=== PATIENT | male | born 1985 | race Hispanic/Latino ===

== ENCOUNTER 2021-06-18 23:31 | Inpatient (IN) | payer SELFPAY ==
[~2021-06-18] VITALS: Ht 172.7 cm; Wt 81.6 kg
[2021-06-19] MEDS ORDERED: ACETAMINOPHEN 325 MG TAB PO ONE
[2021-06-19] MEDS ORDERED: DEXAMETHASONE SOD PHOS 10 MG/1 ML VIAL IV ONE
[2021-06-19 00:03] LABS: BASOPHILS % 0.1 % (0.0-1.0); HEMATOCRIT 44.1 % (38.2-49.6); HEMOGLOBIN 14.6 g/dL (14.0-18.0); LYMPHOCYTES % 12.7 % (18.0-39.1); MEAN CORPUSCULAR HEMOGLOBIN 27.5 pg (28-32); MEAN CORPUSCULAR HGB CONC 33.1 g/dL (31-35); MEAN CORPUSCULAR VOLUME 83.2 fL (81-99); MONOCYTES # (AUTO) 0.4 (0.2-0.8); MONOCYTES % 4.8 % (4.4-11.3); NEUTROPHILS # (AUTO) 6.3 (2.1-6.9); NEUTROPHILS % 81.9 % (38.7-80.0); PLATELET COUNT 136 x10e3/uL (140-360); RED CELL DISTRIBUTION WIDTH 14.4 % (11.7-14.4)
[2021-06-19] MEDS ORDERED: ACETAMINOPHEN 325 MG TAB ONE (00:04)
[2021-06-19] MEDS ORDERED: DEXAMETHASONE SOD PHOS 10 MG/1 ML VIAL ONE (00:05)
[2021-06-19 00:18] LABS: ALBUMIN 3.4 g/dL (3.5-5.0); ANION GAP 12.6 mmol/L (8-16); CALCIUM 8.2 mg/dL (8.4-10.2); CREATININE, SERUM 0.91 mg/dL (0.72-1.25); POTASSIUM 3.6 mmol/L (3.5-5.1)
[2021-06-19 00:24] LABS: CREATINE KINASE MB 0.3 ng/mL (0-5.0)
[2021-06-19 07:23] LABS: CREATINE KINASE MB 0.4 ng/mL (0-5.0)
[2021-06-19] MEDS ORDERED: ACETAMINOPHEN 325 MG TAB PO PRN (11:00)
[2021-06-19] MEDS ORDERED: HYDRALAZINE HCL 20 MG/ML VIAL IV PRN (11:00)
[2021-06-19] MEDS ORDERED: CYPROHEPTADINE H4 MG (11:28)
[2021-06-19] MEDS ORDERED: PREDNISONE20 MG (11:28)
[2021-06-19] MEDS ORDERED: CYPROHEPTADINE H4 MG PO (11:44)
[2021-06-19] MEDS ORDERED: CIMETIDINE400 MG PO (11:44)
[2021-06-19] MEDS ORDERED: AVODART0.5 MG PO (11:44)
[2021-06-19] MEDS ORDERED: MELATONIN3 MG PO (11:44)
[2021-06-19] MEDS ORDERED: ZITHROMAX250 MG PO (11:44)
[2021-06-19] MEDS ORDERED: VITAMIN D3 COM1 EACH (11:44)
[2021-06-19] MEDS: CEFTRIAXONE 1 GM in SODIUM CHLORIDE 0.9% 50ML 50 ML IV SCH ×2 (13:50→15:05)
[2021-06-19] MEDS ORDERED: REMDESIVIR 200MG 200 MG in SODIUM CHLORIDE 0.9% 100 ML IV ONE (15:00)
[2021-06-19] MEDS: ENOXAPARIN SOD INJ 40 MG/0.4 ML SYR SC SCH (16:55)
[2021-06-19 18:06] VITALS: BP 131/68
[2021-06-19 18:09] VITALS: BP 131/68
[2021-06-19 20:00] VITALS: BP 108/61
[2021-06-19 20:23] LABS: CREATINE KINASE MB 0.5 ng/mL (0-5.0)
[2021-06-19 21:00] VITALS: BP 108/61
[2021-06-20] VITALS (8 sets, daily range): BP systolic 100–119; BP diastolic 56–77
[2021-06-20 06:04] LABS: BASOPHILS % 0.1 % (0.0-1.0); HEMOGLOBIN 14.9 g/dL (14.0-18.0); LYMPHOCYTES # (AUTO) 0.8 (1.0-3.2); LYMPHOCYTES % 9.5 % (18.0-39.1); MEAN CORPUSCULAR HEMOGLOBIN 27.8 pg (28-32); MEAN CORPUSCULAR HGB CONC 33.9 g/dL (31-35); MEAN CORPUSCULAR VOLUME 82.1 fL (81-99); MONOCYTES # (AUTO) 0.4 (0.2-0.8); MONOCYTES % 4.9 % (4.4-11.3); NEUTROPHILS # (AUTO) 7.1 (2.1-6.9); PLATELET COUNT 171 x10e3/uL (140-360); RED BLOOD COUNT 5.36 x10e6/uL (4.3-5.7); RED CELL DISTRIBUTION WIDTH 14.1 % (11.7-14.4)
[2021-06-20 06:30] LABS: ALBUMIN 3.2 g/dL (3.5-5.0); ALBUMIN/GLOBULIN RATIO 0.9 (0.8-2.0); ANION GAP 13.3 mmol/L (8-16); CALCIUM 8.6 mg/dL (8.4-10.2); CREATININE, SERUM 0.68 mg/dL (0.72-1.25); POTASSIUM 4.3 mmol/L (3.5-5.1)
[2021-06-20 07:34] LABS: CREATINE KINASE MB 0.5 ng/mL (0-5.0)
[2021-06-20] MEDS: ASCORBIC ACID 500 MG TAB PO SCH (09:27)
[2021-06-20] MEDS: DEXAMETHASONE SOD PHOS 10 MG/1 ML VIAL IV SCH (09:27)
[2021-06-20] MEDS: CHOLECALCIFEROL 400 UNIT TAB PO SCH (09:28)
[2021-06-20] MEDS: ZINC SULFATE 220 MG CAP PO SCH (09:28)
[2021-06-20] MEDS: REMDESIVIR 100MG 100 MG in SODIUM CHLORIDE 0.9% 100 ML IV SCH (13:56)
[2021-06-20] MEDS ORDERED: REMDESIVIR 100MG 100 MG IV ONE (14:08)
[2021-06-20] MEDS: ENOXAPARIN SOD INJ 40 MG/0.4 ML SYR SC SCH (16:32)
[2021-06-21 01:36] VITALS: BP 106/78
[2021-06-21 06:00] VITALS: BP 108/75
[2021-06-21 08:09] LABS: BASOPHILS % 0.3 % (0.0-1.0); HEMATOCRIT 48.1 % (38.2-49.6); MEAN CORPUSCULAR HEMOGLOBIN 27.7 pg (28-32); MEAN CORPUSCULAR HGB CONC 33.3 g/dL (31-35); MEAN CORPUSCULAR VOLUME 83.2 fL (81-99); MONOCYTES # (AUTO) 0.4 (0.2-0.8); MONOCYTES % 5.6 % (4.4-11.3); NEUTROPHILS # (AUTO) 6.2 (2.1-6.9); NEUTROPHILS % 80.4 % (38.7-80.0); PLATELET COUNT 229 x10e3/uL (140-360); RED BLOOD COUNT 5.78 x10e6/uL (4.3-5.7)
[2021-06-21 08:24] LABS: ANION GAP 15.4 mmol/L (8-16); CALCIUM 8.7 mg/dL (8.4-10.2); CREATININE, SERUM 0.63 mg/dL (0.72-1.25); POTASSIUM 4.4 mmol/L (3.5-5.1)
[2021-06-21 08:42] VITALS: BP 107/67
[2021-06-21] MEDS: DEXAMETHASONE SOD PHOS 10 MG/1 ML VIAL IV SCH (09:19)
[2021-06-21] MEDS: ASCORBIC ACID 500 MG TAB PO SCH (09:19)
[2021-06-21] MEDS: CHOLECALCIFEROL 400 UNIT TAB PO SCH (09:19)
[2021-06-21] MEDS: ZINC SULFATE 220 MG CAP PO SCH (09:19)
[2021-06-21 11:27] VITALS: BP 107/67
[2021-06-21] MEDS: CEFTRIAXONE 1 GM in SODIUM CHLORIDE 0.9% 50ML 50 ML IV SCH (12:34)
[2021-06-21] MEDS ORDERED: SODIUM CHLORIDE 0.9% 100 ML ONE (12:46)
[2021-06-21] MEDS: REMDESIVIR 100MG 100 MG in SODIUM CHLORIDE 0.9% 100 ML IV SCH (14:06)
[2021-06-21] MEDS: ENOXAPARIN SOD INJ 40 MG/0.4 ML SYR SC SCH (16:11)
[2021-06-21 19:05] VITALS: BP 101/68
[2021-06-21 21:28] VITALS: BP 101/68
[2021-06-22] VITALS (7 sets, daily range): BP systolic 99–123; BP diastolic 65–85
[2021-06-22] MEDS: ZINC SULFATE 220 MG CAP PO SCH (08:36)
[2021-06-22] MEDS: ASCORBIC ACID 500 MG TAB PO SCH (08:36)
[2021-06-22] MEDS: DEXAMETHASONE SOD PHOS 10 MG/1 ML VIAL IV SCH (08:36)
[2021-06-22] MEDS: CHOLECALCIFEROL 400 UNIT TAB PO SCH (08:36)
[2021-06-22] MEDS: CEFTRIAXONE 1 GM in SODIUM CHLORIDE 0.9% 50ML 50 ML IV SCH (13:07)
[2021-06-22] MEDS: REMDESIVIR 100MG 100 MG in SODIUM CHLORIDE 0.9% 100 ML IV SCH (14:57)
[2021-06-22] MEDS ORDERED: ASCORBIC ACID500 MG PO (16:09)
[2021-06-22] MEDS ORDERED: ACETAMINOPHEN325 M1 PO (16:09)
[2021-06-22] MEDS ORDERED: ZINC SULFATE50 MG PO (16:09)
[2021-06-22] MEDS ORDERED: DECADRON6 MG PO (16:09)
[2021-06-22] MEDS: ENOXAPARIN SOD INJ 40 MG/0.4 ML SYR SC SCH (16:41)
== END 2021-06-22 18:08 | disposition home or self-care (01) | DRG 177 ==
LOC: ER 23:36 → ERHOLD 06-19 00:53 → IMCU 06-19 17:35
PROVIDERS: ADMIT Internal Medicine; ATTEND Internal Medicine
PROC: 8E0ZXY6 Isolation (ICD-10-PCS; principal; 2021-06-19)
PROC: XW033E5 Introduction of Remdesivir Anti-infective into Peripheral Vein, Percutaneous Approach, New Technology Group 5 (ICD-10-PCS; 2021-06-19)
DX: U07.1 COVID-19 (principal); J12.82 Pneumonia due to coronavirus disease 2019; J96.01 Acute respiratory failure with hypoxia
CPT/HCPCS: 36415; 71045; 80048; 80053; 82550; 82553; 84484; 85025; 86140; 93005; 96360; 99284; J0456; J0696; J1100; J1650; J7050; U0002